=== PATIENT | female | born 1970 | race Two or more races ===

== ENCOUNTER 2022-09-15 13:47 | Outpatient (CLI) | payer MEDICARE, OTHER ==
[2022-09-15] MEDS ORDERED: UREA 10% -AHA 4% CREAM 57 GM TUBE ONE (14:15)
== END 2022-09-15 23:59 ==
LOC: WOU 13:47
PROVIDERS: ATTEND Podiatrist Foot & Ankle Surgery
DX: S92.912D Unspecified fracture of left toe(s), subsequent encounter for fracture with routine healing (principal); X58.XXXD Exposure to other specified factors, subsequent encounter; M21.372 Foot drop, left foot; M21.371 Foot drop, right foot; M24.562 Contracture, left knee; M24.561 Contracture, right knee
CPT/HCPCS: G0463